=== PATIENT | female | born 1945 | race Caucasian/White ===

== ENCOUNTER 2018-01-13 09:12 | Emergency (ER) | payer SELFPAY ==
[~2018-01-13] VITALS: Ht 167.6 cm; Wt 63.2 kg
[2018-01-13 09:18] VITALS: BP 153/82; Ht 167.6 cm; Wt 63.2 kg
[2018-01-13 09:59] LABS: BASOPHILS 0.5 % (0-2); EOSINOPHILS 4.6 % (0-7); HEMATOCRIT 43.3 % (36.0-48.0); HEMOGLOBIN 15.4 g/dL (12-16); IMMATURE GRANULOCYTES 0.2 % (0-5); LYMPHOCYTES 38.8 % (15-50); MCH 31.1 pg (26.0-34.0); MCHC 35.6 g/dL (31.0-37.0); MCV 87.5 fL (80.0-100.0); MEAN PLATELET VOLUME 10.8 fL (7.4-10.4); MONOCYTES 8.2 % (2-11); NEUTROPHILS 47.7 % (40-80); PLATELET COUNT 207 10x3/uL (130-400); RBC 4.95 10x6/uL (4.00-5.40); RDW 12.7 % (11.5-14.5); WBC 5.6 10x3/uL (4.8-10.8)
[2018-01-13 10:16] LABS: ALBUMIN 3.8 g/dL (3.4-5.0); ALKALINE PHOSPHATASE 82 U/L (46-116); ALT (SGPT) 14 U/L (10-68); BILIRUBIN - TOTAL 0.38 mg/dL (0.2-1.3); CALC OSMOLALITY 277 mosm/kg (275-300); CALCIUM 9.5 mg/dL (8.5-10.1); CHLORIDE - SERUM 103 mmol/L (98-107); CREATININE - SERUM 0.7 mg/dL (0.6-1.3); GLUCOSE 120 mg/dL (74-106); POTASSIUM - SERUM 4.2 mmol/L (3.5-5.1); PROTEIN - SERUM 7.8 g/dL (6.4-8.2); SODIUM 139 mmol/L (136-145); UREA NITROGEN 11 mg/dL (7-18); eGFR NON AFRICAN AMERICAN 87 mL/min (90-120)
== END 2018-01-13 13:35 | disposition left against medical advice (07) ==
LOC: D.ER 09:12
PROVIDERS: Family Medicine
DX: R05 Cough (principal)

== ENCOUNTER 2018-01-13 12:44 | Emergency (ER) | payer SELFPAY ==
[2018-01-13 09:18] VITALS: BMI 22.4
== END 2018-01-13 13:38 | disposition left against medical advice (07) ==
LOC: D.ER 12:44
DX: R68.89 Other general symptoms and signs (principal)

== ENCOUNTER → 2018-10-10 13:22 | Outpatient (CLI) | payer MEDICARE | END | disposition home or self-care (01) | LOC: D.RAD 13:22 | PROVIDERS: ATTEND Nurse Practitioner Family | DX: M54.2 Cervicalgia (principal); M54.5 Low back pain ==